=== PATIENT | male | born 1970 | race Caucasian/White ===

== ENCOUNTER 2017-10-10 | Emergency (ER) | payer MEDICARE, MEDICAID ==
[~2017-10-10] VITALS: Ht 188 cm; Wt 84.1 kg
[~2017-10-10] MED LIST: ATOR10TA52 PO; DIVA500T53 PO
[2017-10-10 07:20] VITALS: BP 118/78
== END 2017-10-10 07:45 | disposition home or self-care (01) ==
LOC: ER
DX: R21 Rash and other nonspecific skin eruption (principal)

== ENCOUNTER 2018-04-09 10:01 | Emergency (ER) | payer MEDICAID, MEDICARE, OTHER ==
[~2018-04-09] VITALS: Ht 188 cm; Wt 77.1 kg
[2018-04-09 10:36] LABS: Eosinophils # (auto) 0.1 uL; Eosinophils % (auto) 1.5 % (0.0-7.0); Monocytes # (auto) 0.8 uL; Neutrophils # (auto) 6.7 uL; Red Blood Cells 4.94 10^6/uL (4.5-5.90); Red Cell Distribution Width 13.8 % (11.8-14.3)
[2018-04-09 10:38] LABS: Basophils # (auto) 0.1 uL; Basophils % (auto) 0.6 % (0.0-2.0); Hematocrit 49.3 % (41.0-53.0); Hemoglobin 17.5 g/dL (13.5-17.5); Lymphocytes # (auto) 1.9 uL; Lymphocytes % (auto) 19.6 % (10.0-50.0); Mean Corpuscular Hemoglobin 35.4 pg (28.0-32.0); Mean Corpuscular Hgb Conc. 35.4 g/dL (32.0-36.0); Mean Corpuscular Volume 99.8 fL (80.0-100.0); Monocytes % (auto) 8.6 % (0.0-12.0); Neutrophils % (auto) 69.7 % (37.0-80.0); Platelet Count (auto) 274 10^3/uL (140-450); White Blood Cell 9.6 10^3/uL (4.4-10.8)
[2018-04-09 10:58] LABS: Alanine Aminotransferase 45 U/L (16-61); Alkaline Phosphatase 95 U/L (45-117); Anion Gap 7 (5-15); Aspartate Aminotransferase 21 U/L (15-37); BUN/Creatinine Ratio 11.8; Bilirubin, Total 0.5 mg/dL (0.2-1.0); Blood Urea Nitrogen 13 mg/dL (7-18); Calcium 9.7 mg/dL (8.5-10.1); Carbon Dioxide 23 mmol/L (21-32); Chloride 107 mmol/L (98-107); GFR African American 93 mL/min; GFR Non-African American 77 mL/min; Glucose 118 mg/dL (74-106); Magnesium 2.4 mg/dL (1.6-2.6); Potassium 3.5 mmol/L (3.5-5.1); Sodium 137 mmol/L (136-145); Total Protein 7.9 g/dL (6.4-8.2)
[2018-04-09] MEDS ORDERED: SODIUM CHLORIDE 0.9% 1,000 ML IV ONE (11:26)
[2018-04-09] MEDS ORDERED: ASPirin 81 mg TAB PO ONE (11:30)
[2018-04-09 12:18] LABS: INR 0.87 (0.9-1.15); Partial Thromboplastin Time 28.4 sec (23.78-33.04); Prothrombin Time 9.4 sec (9.27-12.13)
[2018-04-09 13:15] VITALS: BP 112/78
== END 2018-04-09 13:25 | disposition left against medical advice (07) ==
LOC: ER 10:01
DX: R07.9 Chest pain, unspecified (principal); I25.2 Old myocardial infarction; F31.9 Bipolar disorder, unspecified; R11.2 Nausea with vomiting, unspecified; F17.210 Nicotine dependence, cigarettes, uncomplicated; Z79.899 Other long term (current) drug therapy; Z53.29 Procedure and treatment not carried out because of patient's decision for other reasons
CPT/HCPCS: 36415; 71046; 80053; 83735; 83880; 84443; 84484; 85025; 85379; 85610; 85730; 93005; 94761; 96360; 96361; 99285; J7030